=== PATIENT | female | born 1960 | race Caucasian/White ===

== ENCOUNTER 2016-06-20 12:57 | Day surgery (SDC) | payer OTHER ==
[~2016-06-20] VITALS: Ht 157.5 cm; Wt 75.9 kg
[~2016-06-20 12:57] MED LIST: NADOLOL; PANTOPRAZOLE
[2016-06-20] MEDS ORDERED: PROPRANOLOL (14:01)
[2016-06-20 14:02] VITALS: Ht 157.5 cm; Wt 75.9 kg
[2016-06-20] MEDS ORDERED: PROPOFOL 20 ML ONE (15:26)
[2016-06-20 15:27] VITALS: BP 138/69; PULSE 54; RESP 19
[2016-06-20] MEDS ORDERED: MIDAZOLAM 1 MG/ML 2 ML INJ ONE (15:27)
[2016-06-20] MEDS ORDERED: FENTAnyl 50 MCG/ML VIAL ONE (15:27)
[2016-06-20 16:15] VITALS: BP 156/76; PULSE 55; RESP 18
[2016-06-20 16:38] VITALS: BP 163/80; PULSE 51; RESP 11
--- NOTE | 2016-06-20 23:34 | GILP ---
DATE OF PROCEDURE: 06/20/2016 DATE: 06/20/2016 NAME OF PROCEDURE: Esophagogastroduodenoscopy with endoscopic variceal ligation and biopsies. SURGEON: Linda Hudson MD. PREMEDICATION: Monitored anesthesia care by anesthesiologist. INSTRUMENT USED: Olympus panendoscope. TECHNIQUE: After informed consent, with the patient/relatives understanding the procedure, its indic ations, potential risks, and complications, including but not limited to: allergic reaction, bleedin g, perforation or infection, and after all pertinent questions were answered to the patient's satisf action, the patient/relatives signed witnessed informed consent. Following this, premedication was administered slowly IV push under careful cardiovascular and respi ratory monitoring with pulse oximetry, automatic blood pressure and vehicle monitor technician. Once the sedative effect was achieved the patient was place in the left lateral decubitus, the panen doscope was introduced and advanced under visual control. Careful examination of the upper gastrointestinal tract, both on insertion as well as withdrawal of the instrument disclosed the following findings: ESOPHAGUS: The distal esophagus shows significant esophageal varices graded as III/IV. Upon comple tion of examination, the banding device was applied to the tip of the endoscope, the endoscope was r eintroduced, and 4 bands were applied to the most prominent variceal channels with no evidence or co mplication. STOMACH: Upon entrance to the stomach, air was insufflated, the gastric murillo distended normally. The mucosa of the fundus, body, and antrum of the stomach was carefully examined, shows erythema and edema of the mucosa as well as congestion consistent with portal hypertensive gastropathy. Biopsie s were obtained in a limited fashion. PYLORUS: The pylorus appears patent and within normal limits, with no evidence of gastric outlet ob struction. DUODENUM: The duodenal mucosa was carefully examined in the duodenal bulb as well as the second por tion of the duodenum and appears unremarkable with no evidence of duodenitis, ulcer, or neoplasm. The instrument was then withdrawn, the patient tolerated the procedure well and was transfer out of the endoscopy suite awake, and in good condition to continue recovery under observation IMPRESSION: 1. Grade III/IV esophageal varices. Post-endoscopic variceal ligation x4. 2. Portal hypertensive gastropathy. Rule out Helicobacter pylori infection, biopsies obtained. 3. Post-endoscopic variceal ligation x4. PLAN: We will continue PPIs. Further recommendation will depend on her clinical course. Repeat EG D and possible banding in 3 months. Dictated By: LINDA HUDSON MS/LALO Conf#: [id number] DID#: [id number] CC: LINDA HUDSON;*EndCC*
== END 2016-06-20 16:36 | disposition home or self-care (01) ==
LOC: GIL 12:57
PROVIDERS: ATTEND Internal Medicine Gastroenterology
DX: I85.00 Esophageal varices without bleeding (principal); K29.50 Unspecified chronic gastritis without bleeding; K76.6 Portal hypertension; K31.89 Other diseases of stomach and duodenum
CPT/HCPCS: 43239; 43244; 88305; 88312; J2250; J3010; Z7610

== ENCOUNTER 2016-10-17 12:02 | Day surgery (SDC) | payer OTHER ==
[~2016-10-17] VITALS: Ht 154.9 cm; Wt 72.1 kg
[~2016-10-17 12:02] MED LIST changes: +PROPRANOLOL
[2016-10-17 13:44] VITALS: Ht 154.9 cm; Wt 72.1 kg
[2016-10-17] MEDS ORDERED: ELBA1TAB PO (13:52)
[2016-10-17 14:21] VITALS: BP 150/72; PULSE 63; RESP 15
[2016-10-17] MEDS ORDERED: PROPOFOL 40 ML ONE (15:50)
[2016-10-17] MEDS ORDERED: FENTAnyl 50 MCG/ML VIAL ONE (15:50)
[2016-10-17] MEDS ORDERED: MIDAZOLAM 1 MG/ML 2 ML INJ ONE (15:50)
[2016-10-17] MEDS ORDERED: LIDOCAINE 2% (SDV) 5 ML INJ ONE (15:50)
--- NOTE | 2016-10-18 02:54 | GILP ---
DATE OF PROCEDURE: 10/17/2016 PROCEDURE: Esophagogastroduodenoscopy with biopsies. BRIEF HISTORY AND INDICATIONS: The patient is being evaluated for history of cirrhosis of the liver . PREMEDICATION: Monitored anesthesia care by anesthesiologist. INSTRUMENT USED: Olympus endoscope. TECHNIQUE: After informed consent, with the patient/relatives understanding the procedure, its indic ations, potential risks and complications, including but not limited to: allergic reaction, bleeding , perforation or infection, and after all pertinent questions were answered to the patients satisfac tion, the patient/relatives signed witnessed informed consent. Following this, premedication was administered slowly IV push under careful cardiovascular and respi ratory monitoring with pulse oximetry, automatic blood pressure and recreation programmer. Once the sedative effect was achieved the patient was place in the left lateral decubitus, the panen doscope was introduced and advanced under visual control. Careful examination of the upper gastrointestinal tract, both on insertion as well as withdrawal of the instrument disclosed the following findings: ESOPHAGUS: The distal esophagus shows the presence of grade I/IV esophageal varices with no stigmat a of recent bleeding. STOMACH: Upon entrance to the stomach, air was insufflated, and the gastric murillo distended normall y. There is erythema, edema, and congestion, as well as friability of the mucosa. Biopsies were ob tained to rule out H. pylori infection. PYLORUS: The pylorus appears patent and within normal limits, with no evidence of gastric outlet obs truction. DUODENUM: The duodenal mucosa was carefully examined in the duodenal bulb as well as the second port ion of the duodenum and appears unremarkable with no evidence of duodenitis, ulcer or neoplasm. The instrument was then withdrawn, the patient tolerated the procedure well and was transfer out of the endoscopy suite awake, and in good condition to continue recovery under observation IMPRESSION: 1. Grade I/IV normal esophageal varices. No stigmata of recent bleeding, no intervention. 2. Portal gastropathy, rule out Helicobacter pylori infection, biopsies obtained. PLAN: The patient will be continued on present regimen, surveillance endoscopy in 3 months is recom mended. Further recommendations will depend on the patient's clinical course, as well as review of biopsies. Dictated By: LINDA DE JESUS Conf#: [id number] DID#: [id number]
== END 2016-10-17 18:17 | disposition home or self-care (01) ==
LOC: GIL 12:02
PROVIDERS: ATTEND Internal Medicine Gastroenterology
DX: K29.50 Unspecified chronic gastritis without bleeding (principal); I10 Essential (primary) hypertension
CPT/HCPCS: 43239; 88305; 88312; J2250; J3010; Z7610

== ENCOUNTER 2017-08-01 12:29 | Day surgery (SDC) | END 2017-08-01 18:30 | disposition home or self-care (01) ==

== ENCOUNTER 2017-08-01 17:40 | Emergency (ER) | END 2017-08-01 22:52 | disposition home or self-care (01) ==

== ENCOUNTER 2018-03-20 11:58 | Day surgery (SDC) | END 2018-03-20 17:27 | disposition home or self-care (01) ==